=== PATIENT | female | born 1970 | race Caucasian/White ===

== ENCOUNTER 2018-05-20 19:37 | Emergency (ER) | payer MEDICAID, OTHER ==
[2018-05-20] MEDS: KETOROLAC 30 MG INJ IM (23:28)
== END 2018-05-21 02:11 | disposition home or self-care (01) ==
LOC: FTE 19:37
DX: M25.561 Pain in right knee (principal)
CPT/HCPCS: 73562; 81025; 93971; 96372; 99285-25